=== PATIENT | female | born 1970 | race Caucasian/White ===

== ENCOUNTER 2016-07-29 16:25 | Emergency (ER) | payer SELFPAY ==
[~2016-07-29] VITALS: Ht 157.5 cm; Wt 55.0 kg
[2016-07-29 16:57] VITALS: BP 117/65; PULSE 59; RESP 14; TEMP 98.1; O2SAT 99
--- NOTE | 2016-07-29 20:21 | PD ---
HPI Chief Complaint: Pain: Acute or Chronic Time Seen by Provider: 20:00 Travel History International Travel<30 days: No Contact w/Intl Traveler<30days: No Traveled to known affect area: No History of Present Illness HPI Patient is a 46-year-old female who presented to the emergency department for evaluation of right wrist pain. Patient states she has a chronic she of her right wrist "popping in and out". He states today she could not pop it in and out and it is painful to move it. She denies any other complaints at this time. She states her pain is a 4/10. PFSH Past Medical History Medical History: Denies Significant Hx ?: Not LMP: [place]- Social History Alcohol Use: No Tobacco Use: No Substance Use: No Allergies-Medications (Allergen,Severity, Reaction): Coded Allergies: No Known Allergies (Unverified , 07/29/16) Reported Meds & Prescriptions Reported Meds & Active Scripts Active No Active Prescriptions or Reported Medications Review of Systems Except as stated in HPI: all other systems reviewed are Neg Musculoskeletal: Positive: Myalgias, Arthralgias, Limited ROM, No: Edema Skin: No Change in Pigmentation Physical Exam Narrative GENERAL: Well-nourished, well-developed patient. SKIN: Warm and dry. HEAD: Normocephalic. EYES: No scleral icterus. No injection or drainage. NECK: Supple, trachea midline. No JVD or lymphadenopathy. CARDIOVASCULAR: Regular rate and rhythm without murmurs, gallops, or rubs. RESPIRATORY: Breath sounds equal bilaterally. No accessory muscle use. GASTROINTESTINAL: Abdomen soft, non-tender, nondistended. MUSCULOSKELETAL: No cyanosis, or edema. Slight deformity noted to the ulnar aspect of the right wrist anteriorly. Positive radial pulse, decreased box finisher strength 4/5. Brisk less than 3 second capillary refill. BACK: Nontender without obvious deformity. No CVA tenderness. Data Data Last Documented VS Vital Signs Date Time Temp Pulse Resp B/P Pulse Ox O2 Delivery O2 Flow Rate FiO2 07/29/16 16:57 98.1 59 14 117/65 99 Orders Wrist, Complete ([id number]) (07/29/16 ) MDM Medical Decision Making Medical Screen Exam Complete: Yes Emergency Medical Condition: Yes Interpretation(s) Vital Signs Date Time Temp Pulse Resp B/P Pulse Ox O2 Delivery O2 Flow Rate FiO2 07/29/16 16:57 98.1 59 14 117/65 99 Differential Diagnosis Fracture versus dislocation versus arthritis versus impingement versus other Narrative Course Patient is a 46-year-old female who presented to emergency for evaluation of right wrist pain. Pain is ongoing for several months, patient can usually pop it back into place. Today it feels as if it's stuck. Imaging was ordered to assess for bony abnormality. X-ray of the right wrist was negative. Patient is neurovascularly intact. Patient is likely experiencing a ligament or tendon abnormality. Discussed with my attending physician who also evaluated patient. A mandatory referral will be placed for hand surgeon for follow-up. This was discussed with patient and her significant other. She was encouraged to return to emergency department for new or worsening symptoms. Patient verbalized understanding of instructions. Patient stable for discharge. Diagnosis Primary Impression: Wrist pain Qualified Code: M25.531 - Right wrist pain Referrals: Hand Surgeon Patient Instructions: General Instructions, Wrist Injury (ED) Additional Instructions: Follow-up with hand surgeon, mandatory referral has been made. Take medications as directed Return to the emergency department for any new or worsening symptoms Med/Other Pt SpecificInfo: Prescription(s) given Scripts Ibuprofen 800 Mg Mlp324 Mg PO Q8H PRN (Pain/Inflammation) #60 TAB Ref 0 Prov:Bouchra Carreno 07/29/16 Cyclobenzaprine (Flexeril)10 Mg Tab10 Mg PO TID PRN (MUSCLE SPASM) 10 Days Ref 0 Prov:Bouchra Carreno 07/29/16 Disposition: 01 DISCHARGE HOME Condition: Stable Bouchra Carreno Jul 29, 2016 20:20
--- NOTE | 2016-07-29 20:49 | RADHPO ---
EXAM DATE/TIME: 07/29/2016 20:16 [facility] COMPARISON: No previous studies available for comparison. INDICATIONS : Complains of pain to lateral side of right wrist. No known trauma to wrist. MEDICAL HISTORY : None. SURGICAL HISTORY : None. ENCOUNTER: Initial ACUITY: 2 months PAIN SCORE: 8/10 LOCATION: Right wrist FINDINGS: Three view examination of the right wrist demonstrates no soft tissue swelling, dislocation, or fract ure. The carpal bones are in normal alignment. The joint spaces are maintained. Bony mineralizatio n is normal. CONCLUSION: Unremarkable examination of the right wrist. Juan Goins MD on July 29, 2016 at 20:43 Board Certified Radiologist. This report was verified electronically.
[2016-07-29] MEDS ORDERED: IBUP800T23 PO (21:01)
[2016-07-29] MEDS ORDERED: CYCL1TAB29 PO (21:01)
== END 2016-07-29 21:29 | disposition home or self-care (01) ==
LOC: PHED 16:25 → PHEFT 21:29
DX: M25.531 Pain in right wrist (principal)
CPT/HCPCS: 73110; 99283